=== PATIENT | female | born 1980 | race Caucasian/White ===

== ENCOUNTER 2021-01-25 08:28 | Emergency (ER) | payer OTHER ==
[2021-01-25] MEDS ORDERED: Amoxicillin/Potassium Clav 875 MG TAB ONE (09:12)
[2021-01-25] MEDS ORDERED: Acetaminophen 500 MG TAB ONE (09:14)
== END 2021-01-25 09:50 | disposition home or self-care (01) ==
LOC: BURERS 08:28
DX: S91.352A Open bite, left foot, initial encounter (principal); F17.200 Nicotine dependence, unspecified, uncomplicated; W54.0XXA Bitten by dog, initial encounter